=== PATIENT | female | born 1975 | race Caucasian/White ===

== ENCOUNTER 2019-01-14 15:56 | Emergency (ER) | payer MEDICAID ==
[~2019-01-14] VITALS: Ht 149.9 cm; Wt 71.7 kg
[2019-01-14 16:15] VITALS: Ht 149.9 cm; Wt 71.7 kg
[2019-01-14 17:33] LABS: BASOPHIL % 0.1 % (0-2); PLATELET COUNT 369 x10^3mcL (130-400)
[2019-01-14 17:37] LABS: RED CELL DISTRIBUTION WIDTH 15.2 % (11.5-14.5)
[2019-01-14 19:43] VITALS: BP 124/65
== END 2019-01-14 20:43 | disposition home or self-care (01) ==
LOC: ED 15:56
PROVIDERS: Emergency Medicine
DX: O20.0 Threatened abortion (principal); O24.119 Pre-existing type 2 diabetes mellitus, in pregnancy, unspecified trimester; O99.210 Obesity complicating pregnancy, unspecified trimester; E11.9 Type 2 diabetes mellitus without complications; E66.9 Obesity, unspecified; I10 Essential (primary) hypertension; Z68.31 Body mass index [BMI] 31.0-31.9, adult
CPT/HCPCS: 36415; 82962; J7030